=== PATIENT | female | born 1955 | race Caucasian/White ===

== ENCOUNTER 2016-12-05 15:57 | Emergency (ER) | payer BC ==
[2016-12-05 16:06] VITALS: BP 177/77
--- NOTE | 2016-12-05 16:23 | UC ---
Abdominal Pain Female HPI - HPI Summary HPI Summary: abdom. pain and bloating for one day---also had dark urine yesterday---pain similar to past episodes of diverticulitis - History of Current Complaint Chief Complaint: UCAbdominalPain Stated Complaint: ABDOMINAL COMPLAINT Time Seen by Provider: 12/05/16 16:14 Hx Obtained From: Patient Hx Last Menstrual Period: 1999 ?: No Onset/Duration: Gradual Onset Timing: Constant Severity Initially: Mild Severity Currently: Mild Pain Scale Used: 0-10 Numeric Location: Diffuse Radiates: No Character: Cramping Aggravating Factor(s): Nothing Alleviating Factor(s): Nothing Associated Signs and Symptoms: Positive: Negative Allergies/Adverse Reactions: Allergies Allergy/AdvReac Type Severity Reaction Status Date / Time Hydrochlorothiazide Allergy Difficulty Verified 12/05/16 16:07 Breathing PMH/Surg Hx/FS Hx/Imm Hx Previously Healthy: No Endocrine History: Hypothyroidism, Dyslipidemia Cardiovascular History: Hypertension Psychological History: Anxiety Other History Of: Negative For: HIV, Hepatitis B, Hepatitis C, Anticoagulant Therapy - Surgical History Surgical History: Yes Surgery Procedure, Year, and Place: HYSTERECTOMY, hernia repair - Family History Known Family History: Positive: None - Social History Occupation: Unemployed Lives: Alone Alcohol Use: Rare Substance Use Type: None Smoking Status (MU): Former Smoker Type: Cigarettes Have You Smoked in the Last Year: No When Did the Patient Quit Smoking/Using Tobacco: 1999 - Immunization History Most Recent Influenza Vaccination: fall 2014 Most Recent Tetanus Shot: "probably" Hx Tetanus, Diphtheria Vaccination: Yes Vaccination Up to Date: Yes Review of Systems Constitutional: Negative Skin: Negative Eyes: Negative ENT: Negative Respiratory: Negative Cardiovascular: Negative Gastrointestinal: Abdominal Pain Genitourinary: Negative Motor: Negative Neurovascular: Negative Musculoskeletal: Negative Neurological: Negative Psychological: Negative Is Patient Immunocompromised?: No All Other Systems Reviewed And Are Negative: Yes Physical Exam Triage Information Reviewed: Yes Appearance: No Pain Distress, Well-Nourished, Pain Distress - mild Vital Signs: Initial Vital Signs Temp 97.1 F 12/05/16 16:03 Pulse 67 12/05/16 16:03 Resp 12 12/05/16 16:03 BP 177/77 12/05/16 16:03 Pulse Ox 99 12/05/16 16:03 Vital Signs Reviewed: No Eye Exam: Normal Eyes: Positive: Conjunctiva Clear ENT Exam: Normal ENT: Positive: Normal ENT inspection, Hearing grossly normal. Negative: Trismus , Muffled/hoarse voice Dental Exam: Normal Neck exam: Normal Neck: Positive: Supple, Nontender Respiratory Exam: Normal Respiratory: Positive: Chest non-tender, Lungs clear, No accessory muscle use Cardiovascular Exam: Normal Cardiovascular: Positive: RRR, Brisk Capillary Refill Abdomen Description: Positive: No Organomegaly, Soft, Distended. Negative: CVA Tenderness (R), CVA Tenderness (L), Guarding, Hepatomegaly, McBurney's Point Tenderness, Peritoneal Signs, Pulsatile Mass, Splenomegaly Bowel Sounds: Positive: Present Musculoskeletal Exam: Normal Musculoskeletal: Positive: Strength Intact, ROM Intact Neurological Exam: Normal Neurological: Positive: Alert, Muscle Tone Normal Psychological Exam: Normal Skin Exam: Normal Diagnostics - Radiology No standard instances Xray Interpretation: Positive (See Comments) Radiology Interpretation Completed By: Radiologist Abd Pain Female Course/Dx - Course Course Of Treatment: diverticuli diet, cipro flagyl, follow with pcp - Differential Dx/Diagnosis Differential Diagnosis: Appendicitis, Diverticulitis, Irritable Bowel Syndrome, Urinary Tract Infection Provider Diagnoses: Diverticulitis Discharge - Discharge Plan Condition: Stable Disposition: HOME Prescriptions: Metronidazole [Flagyl 500 MG TAB] 500 mg PO TID #30 tab Sulfamethox/Trimethoprim DS* [Bactrim DS 800/160 TAB*] 1 tab PO BID #14 tab Patient Education Materials: Diverticulitis (ED), Diverticulitis Diet (ED) Referrals: Fred Coronado DO [Primary Care Provider] - 12/09/16 Additional Instructions: To ED should symptoms worsen in any way
--- NOTE | 2016-12-05 18:38 | RAD ---
CLINICAL HISTORY: Right flank pain COMPARISON: None TECHNIQUE: Noncontrast CT examination of the abdomen and pelvis from the lung bases through the initial tuberosities. FINDINGS: VISUALIZED LUNG BASES: The visualized lung bases are grossly clear. There is no pleural effusion. ABDOMEN AND PELVIS: Evaluation of the solid organs and vasculature is limited without intravenous contrast. The liver, spleen, pancreas and adrenal glands are grossly normal in appearance there is at least one hyperattenuating stone in the dependent portion of the gallbladder. Gallbladder otherwise does not exhibit any acute inflammatory changes. There is no hydronephrosis bilaterally. No large obstructing renal calculi are identified bilaterally. There are fluid density cysts seen bilaterally. At the upper pole the left kidney there is a 1.7 cm hyperattenuating cyst (axial image 52 and coronal image 73). Evaluation of the gastrointestinal tract is limited without oral contrast. Small bowel is not pathologically dilated. There are diverticula seen throughout the length: Beginning at the cecum. The partially gas-filled appendix does not exhibit any focal inflammatory change (axial image 137 and coronal image 44). There is mild infiltration of the mesenteric fat surrounding the base of the cecum extending approximately snf up the ascending colon. There is no gross retroperitoneal or mesenteric lymphadenopathy. The uterus is surgically absent. The abdominal aorta and iliac arteries are normal in course and diameter. Degenerative changes include multilevel loss of intervertebral disc height involving the lower thoracic and lumbar spine.There are no sinister bone lesions. IMPRESSION: 1. Infiltration of the mesenteric fat surrounding the base of the cecum and the presence of multiple diverticula. Differential includes diverticulitis versus other infectious or inflammatory etiologies. 2. No renal calculi or hydronephrosis. There is a hyperdense 1.7 cm cyst at the upper pole of the left kidney. This can be further characterized with ultrasound on a nonemergent basis. 3. Cholelithiasis without signs of biliary obstruction or acute inflammatory change. 4. Additional chronic, degenerative and iatrogenic findings described in the body of the report.
--- NOTE | 2016-12-07 09:02 | UC ---
Progress - Progress Note Progress Note: PLEASE NOTIFY PT IN ADDITION TO DIVERTICULITIS SHE ALSO HAS A MRSA UTI STOP CIPRO START BACTRIM DS 1 TWICE DAILY FOR A WEEK RECHECK WITH HER PCP FRIDAY IF SHE IS WORSE SHE NEEDS TO GO TO THE ER
== END 2016-12-05 19:05 | disposition home or self-care (01) ==
LOC: UCEAST 15:57
DX: K57.32 Diverticulitis of large intestine without perforation or abscess without bleeding (principal); N28.1 Cyst of kidney, acquired; K80.20 Calculus of gallbladder without cholecystitis without obstruction; E03.9 Hypothyroidism, unspecified; E78.5 Hyperlipidemia, unspecified; I10 Essential (primary) hypertension; F41.9 Anxiety disorder, unspecified; Z88.8 Allergy status to other drugs, medicaments and biological substances; Z87.891 Personal history of nicotine dependence
CPT/HCPCS: 74176; 81003; 87077; 87086; 87186; 99212; G0463

== ENCOUNTER 2018-05-15 11:05 | Emergency (ER) | payer BC ==
[2018-05-15 11:17] VITALS: BP 178/74
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
== END 2018-05-15 13:10 | disposition home or self-care (01) ==
LOC: UCEAST 11:05
DX: M25.561 Pain in right knee (principal); I10 Essential (primary) hypertension; R22.41 Localized swelling, mass and lump, right lower limb; J45.909 Unspecified asthma, uncomplicated; Z88.8 Allergy status to other drugs, medicaments and biological substances; Z87.891 Personal history of nicotine dependence
CPT/HCPCS: 99213; G0463

== ENCOUNTER 2018-12-17 15:21 | Emergency (ER) | payer BC, OTHER ==
--- OUTSIDE RECORDS SUMMARY | 2018-12-17 15:27 | XMS REPORT | Continuity of Care Document ---
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 Onset: 06/2018 region and thigh Localized, primary osteoarthritis Estefany Yao M.D. Onset: 05/18/2018 Social History Type Date Description Comments Sex Unknown Tobacco Use Start: Unknown End: Former Cigarette Smoker Smoking Status Reviewed: 10/26/18 Former Cigarette Smoker ETOH Use Denies alcohol use Tobacco Use Start: Unknown End: Patient is a former smoker Unknown Recreational Drug Use Denies Drug Use Exercise Type/Frequency Does not exercise Allergies, Adverse Reactions, Alerts Active Allergies Reaction Severity Comments Date Hydrochlorothiazide 10/16/2017 Wellbutrin 10/16/2017 Shrimp Allergenic Extract 10/16/2017 Medications Active Medications SIG Qnty Indications Ordering Date Provider Probiotic 1 by mouth every 30caps Shahnaz Costa MD 10/26/2018 Capsules day Januvia 1 by mouth every 90tabs Shahnaz Costa MD 10/22/2018 50mg Tablets day Levothyroxine Sodium 1 by mouth every Shahnaz Costa MD 10/22/2018 88mcg day Tablets Cyclobenzaprine HCL 1 tablet by mouth 30tabs M25.551 Estefany Yao, 2018 10mg q8 hours as M.D. Tablets needed muscle spasms Cane use for 1units M17.11 Estefany Yao, 05/18/2018 Misc ambulation - r M.D. knee pain Fluoxetine HCL 1 by mouth every Unknown 40mg day Capsules Atorvastatin Calcium take 1 tablet at Unknown 20mg bedtime Tablets Metoprolol Succinate ER 1 by mouth every Unknown day 50mg Tablets ER 24HR Benicar 1 by mouth every Unknown 40mg Tablets day Miralax 17 grams by mouth Unknown Powder every day as needed Fluticasone Propionate 2 sprays each Unknown nostril daily as 50mcg/Act Suspension needed Aspirin 81 1 by mouth every Unknown 81mg Tablets DR day History Medications Meloxicam 1 by mouth 14tabs M17.11 Estefany Yao, 05/18/2018 - Unknown 15mg every day M.D. Tablets Medications Administered in Office Medication SIG Qnty Indications Ordering Provider Date Depomedrol 40MG Estefany Yao M.D. 05/25/2018 Injection Celestone 3 mg and 3mg Maximilian Miguel MD 10/16/2017 Injection Immunizations Description No Information Available Vital Signs Date Vital Result Comment 10/26/2018 2:17pm Weight 256.00 lb Heart Rate 72 /min BP Systolic 142 mmHg BP Diastolic 92 mmHg Respiratory Rate 16 /min Body Temperature 97.9 F 06/19/2018 2:20pm Height 63 inches 5'3" Weight 261.00 lb Heart Rate 98 /min BP Systolic 128 mmHg BP Diastolic 78 mmHg Body Temperature 98.3 F Pain Level 2 BMI (Body Mass Index) 46.2 kg/m2 Results Description No Information Available Procedures Date Code Description Status 10/12/2018 [id number] Mammogram Completed 05/25/2018 69429 Inject/Drain Joint/Bursa Major W/O US Completed Medical Devices Description No Information Available Encounters Type Date Location Provider Dx Diagnosis Office Visit 06/19/2018 Orthopedic Estefany Yao, M25.561 Pain in right 2:[facility] knee M25.461 Effusion, right knee M17.11 Unilateral primary osteoarthritis, right knee Office Visit 06/08/2018 2:00p [facility] Estefany Yao, M25.561 Pain in right Of [facility] knee M25.461 Effusion, right knee M23.8x1 Other internal derangements of right knee M17.11 Unilateral primary osteoarthritis, right knee Office Visit 05/25/2018 1:00p [facility] Estefany Yao, M25.551 Pain in right Of C.M.A. M.D. hip M25.561 Pain in right knee M16.11 Unilateral primary osteoarthritis, right hip M17.11 Unilateral primary osteoarthritis, right knee M25.461 Effusion, right knee M79.651 Pain in right thigh Office Visit 05/18/2018 2:45p [facility] Estefany Yao, M25.551 Pain in right Of C.M.A. M.D. hip M25.561 Pain in right knee M16.11 Unilateral primary osteoarthritis, right hip M17.11 Unilateral primary osteoarthritis, right knee M79.651 Pain in right thigh Assessments Date Code Description Provider 10/26/2018 N63.10 Unspecified lump in the right breast, Shahnaz Costa MD unspecified quadrant 06/19/2018 M25.561 Pain in right knee Estefany Yao M.D. 06/19/2018 M25.461 Effusion, right knee Estefany Yao M.D. 06/19/2018 M17.11 Unilateral primary osteoarthritis, right knee Estefany Yao M.D. 06/08/2018 M25.561 Pain in right knee Memo Babin.DChristina 06/08/2018 M25.461 Effusion, right knee Estefany Yao M.D. 06/08/2018 M23.8x1 Other internal derangements of right knee Estefany Yao M.D. 06/08/2018 M17.11 Unilateral primary osteoarthritis, right knee Estefany Yao M.D. 05/25/2018 M25.551 Pain in right hip Estefany Yao M.D. 05/25/2018 M25.561 Pain in right knee Estefany Yao M.D. 05/25/2018 M16.11 Unilateral primary osteoarthritis, right hip Estefany Yao M.D. 05/25/2018 M17.11 Unilateral primary osteoarthritis, right knee Estefany Yao M.D. 05/25/2018 M25.461 Effusion, right knee Estefany Maximilian, M.D. 05/25/2018 M79.651 Pain in right thigh Estefany Yao M.D. 05/18/2018 M25.551 Pain in right hip Estefany Yao M.D. 05/18/2018 M25.561 Pain in right knee Estefany Yao M.D. 05/18/2018 M16.11 Unilateral primary osteoarthritis, right hip Estefany Yao M.D. 05/18/2018 M17.11 Unilateral primary osteoarthritis, right knee Estefany Yao M.D. 05/18/2018 M79.651 Pain in right thigh Estefany Yao M.D. Plan of Treatment 10/26/2018 - GEOVANNY Samson63.10 Unspecified lump in the right breast, unspecified quadrantNew Xrays:US Breast Needle Core Biopsy Right, Ordered: 10/26Follow up:Please sign a medical release form so that we can obtain a disc of your breast imaging (mammograms and ultrasound) to be uploaded in our radiology system prior to your breast biopsy. I will order a right breast US guided biopsy for you today. Please follow up with me after your biopsy to review theresults repeat a clinical breast exam. Functional Status Description No Information Available Mental Status Description No Information Available Referrals Description No Information Available
[2018-12-17 15:34] VITALS: BP 149/64
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
[2018-12-17] MEDS ORDERED: Acetaminophen TAB* 325 MG PO ONE (16:18)
== END 2018-12-17 17:00 | disposition home or self-care (01) ==
LOC: UCEAST 15:21
DX: S09.90XA Unspecified injury of head, initial encounter (principal); H92.09 Otalgia, unspecified ear; M54.2 Cervicalgia; E11.9 Type 2 diabetes mellitus without complications; I10 Essential (primary) hypertension; Z88.8 Allergy status to other drugs, medicaments and biological substances; Z91.09 Other allergy status, other than to drugs and biological substances; Z91.040 Latex allergy status; Z87.891 Personal history of nicotine dependence; W07.XXXA Fall from chair, initial encounter; Y92.9 Unspecified place or not applicable
CPT/HCPCS: 70450; 72125; 99211; A9270-GY; G0463

== ENCOUNTER → 2019-06-17 06:52 | Day surgery (SDC) | payer BC ==
[~2019-06-17 06:52] MED LIST: Acetaminophen TAB* 325 MG ONE; Acetaminophen TAB* 325 MG PO ONE; Acetaminophen TAB* 325 MG PO PRN; Buffered Lidocaine 1% SYRIN* 1 ML/SYRINGE INTRADERM ONE; Bupivacaine 0.5%* 50 ML MDV VIAL ONE; Dexamethasone IV* 4 MG/ML 1 ML (4 MG) ONE; EPHEDrine (Pressors)* 50 MG/ML VIAL ONE; HYDROmorphone INJ1* 1 MG/ML SYRINGE IV PRN; HYDROmorphone INJ1* 1 MG/ML SYRINGE ONE; Lactated Ringers 1000 ML Bag* 1,000 ML IV SCH; Lidocaine 1% INJ* 10 MG/ML 30 ML SDV ONE; Lidocaine 2% PF * 5 ML VIAL ONE; Lidocaine 2.5%/Prilocain 2.5%* 5 GM TUBE ONE; Midazolam* 1 MG/ML 2 ML VIAL (2 MG) ONE; Naloxone* 0.4 MG/ML 1 ML VIAL IV PRN; Ondansetron INJ* 2 MG/ML VIAL ONE; PROCHLORPERAZINE INJ 5 MG/ML 2 ML VIAL IV PRN; Propofol* 10 MG/ML 20 ML BTL ONE; Succinylcholine* 20 MG/ML 10 ML VIAL ONE; ceFAZolin 2 GM PREMIX in ORs 2 GM/50 ML BAG ONE; celeCOXIB CAP* 200 MG ONE; celeCOXIB CAP* 200 MG PO ONE; diPHENhydraMINE IV* 50 MG/ML 1 ml VIAL (BENADRYL) IV PRN; fentaNYL* 50 MCG/ML 2 ML VIAL (100 MCG VIAL) ONE; oxyCODONE TAB* 5 MG TAB PO PRN
--- NOTE | 2019-06-17 12:23 | OP ---
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
--- NOTE | 2019-06-17 12:55 | OP ---
OPERATIVE REPORT: DATE OF PROCEDURE: 06/17/19 DATE OF : 51 SERVICE: General Surgery. SURGEON: Shahnaz Costa MD. ANESTHESIOLOGIST: Brynn De Luna MD. COMFORT STATION SUPERVISOR: BRUNILDA Coronel. PRE-OPERATIVE DIAGNOSIS: Right breast atypical ductal hyperplasia. POST-OPERATIVE DIAGNOSIS: Right breast atypical ductal hyperplasia. OPERATION TITLE: Right breast needle localized lumpectomy. ESTIMATED BLOOD LOSS: Minimal, less than 10 cc. SPECIMENS: Right breast excisional biopsy and additional biopsy at the inferior and medial margin. INDICATION FOR PROCEDURE: Ms. Jeffries is a very pleasant 63-year-old female with a diagnosis of atypical ductal hyperplasia on core biopsy of a retroareolar lesion noted on US at the 12:00 position. Six months ago, she had an ultrasound guided biopsy which was benign. Her 6-month followup showed that the mass at the 12 o'clock position appeared more suspicious. A second ultrasound-guided core biopsy confirmed atypical ductal hyperplasia. Furthermore, given that the pathology was still discordant with the appearance of the lesion, which was highly suspicious, the recommendation during interdisciplinary review was that she undergo an excisional biopsy given the heightend concern for malignancy. The patient understood that the risks include but were not limited to bleeding, infection, injury to nearby structures , the possibility of nipple necrosis, the possibility of re-excision and additional surgery if the final pathology actually shows cancer. She understood the alternatives and benefits as well and she wishes to proceed. DESCRIPTION OF PROCEDURE: The patient was brought back to the operating room and placed on the operating table in the supine position. Sequential compression devices were placed on her bilateral lower extremities. General endotracheal anesthesia was induced. The patient's right breast was prepped and draped in normal sterile fashion, and preoperative antibiotics were administered. Prior to beginning surgery, a time-out was performed verifying the patient's name, date of , and the procedure to be performed. The patient had previously undergone wire localization under ultrasound guidance by Radiology. Her images were displayed and the wire was noted to be very superficial given that the lesion and clip were just below the dermis of the nipple. It appeared to be several millimeters just below the nipple. A curvilinear incision was made surrounding the wire. A cone of tissue was taken surrounding the wire all the way to the end of the wire and then the excisional biopsy was then marked with the usual sutures, short suture at the superior margin, a medium length suture at the medial margin, and a long suture at the lateral margin. It was carried off the table as specimen and sent out to mammography where they were able to confirm that the entire wire was within the specimen; however, the clip was not seen. Therefore, an additional excision was taken at the inferior medial margin. Given that the clip appeared to be again just a few millimeters below the skin, an additional excision was taken just below the areolar dermis and carried inferiorly. The specimen was marked with the usual markings and taken to mammography where it was confirmed that the clip was within the second specimen. At this point, hemostasis was obtained in the breast cavity, additional local anesthesia was administered to the breast cavity and then attention was turned towards closure. This dermal layer was closed using interrupted 3-0 Vicryl sutures. The skin was closed using a running 4-0 Monocryl suture. A sterile dressing was then placed. The patient's anesthesia was reversed and she was taken to the PACU in stable condition. At the end of the case, all counts were correct and I was present during the entirety of the case. [id number]/[facility] #: [id number] [facility] CENTERJusto
[2019-06-17 13:22] VITALS: BP 144/78
== END | disposition home or self-care (01) ==
LOC: OR 06:52
PROVIDERS: ATTEND Surgery
DX: D05.11 Intraductal carcinoma in situ of right breast (principal); I10 Essential (primary) hypertension; E78.5 Hyperlipidemia, unspecified; J45.909 Unspecified asthma, uncomplicated; Z87.891 Personal history of nicotine dependence; E03.9 Hypothyroidism, unspecified; E11.9 Type 2 diabetes mellitus without complications; Z79.84 Long term (current) use of oral hypoglycemic drugs; M16.10 Unilateral primary osteoarthritis, unspecified hip
CPT/HCPCS: 77061; 88307; 88341; 88342; 88360; A9270-GY; G0279; J0330; J0690; J1100; J1170; J2250; J2405; J2704; J3010; J3490